=== PATIENT | female | born 1950 | race Caucasian/White ===

== ENCOUNTER 2018-02-14 08:50 | Day surgery (SDC) | payer OTHER ==
[~2018-02-14 08:50] MED LIST: ASA325 MG PO; DIOVAN160 M1 PO; FOLIC ACID0.4 MG PO; Flagyl PO; MILLIPRED DP5 M1 PO; PLAQUENIL PO; PRILOSEC10 MG PO; VERAPAMIL HCL240 MG PO; VERAPAMIL HCL360 MG PO; VITAMIN D1000 UNI1 PO; ZANTAC150 M3 PO; [UNRECOGNIZED DRUG - OTHER] PO
== END 2018-02-14 16:40 | disposition home or self-care (01) ==
LOC: AMB-ENDOS 08:50
DX: C20 Malignant neoplasm of rectum (principal); K64.1 Second degree hemorrhoids; K52.89 Other specified noninfective gastroenteritis and colitis; R19.7 Diarrhea, unspecified; I10 Essential (primary) hypertension; K29.70 Gastritis, unspecified, without bleeding

== ENCOUNTER 2025-09-17 08:10 | Outpatient (CLI) | payer OTHER | END 2025-09-17 08:15 | disposition home or self-care (01) | LOC: RX STUDY 08:10 | PROVIDERS: ATTEND Colon & Rectal Surgery | DX: K56.50 Intestinal adhesions [bands], unspecified as to partial versus complete obstruction (principal) ==